=== PATIENT | male | born 1955 | race Caucasian/White ===

== ENCOUNTER 2017-11-15 09:34 | Day surgery (SDC) | payer BC, OTHER ==
[~2017-11-15 09:34] MED LIST: LIDOCAINE 2% INJ 100 MG/5 ML SDV (FOR ANES.) As Ordered; PROPOFOL 200 MG/20 ML VIAL As Ordered
[2017-11-15] MEDS ORDERED: LIDOCAINE 2% INJ 100 MG/5 ML SDV (FOR ANES.) As Ordered (09:41)
[2017-11-15] MEDS: NS 1,000 ML IV (09:45)
[2017-11-15] MEDS ORDERED: PROPOFOL 200 MG/20 ML VIAL As Ordered (10:27)
== END 2017-11-15 13:00 | disposition home or self-care (01) ==
LOC: M OPP 09:34
DX: Z12.11 Encounter for screening for malignant neoplasm of colon (principal); D12.5 Benign neoplasm of sigmoid colon; D12.3 Benign neoplasm of transverse colon; K64.0 First degree hemorrhoids; K57.30 Diverticulosis of large intestine without perforation or abscess without bleeding; I10 Essential (primary) hypertension; E78.5 Hyperlipidemia, unspecified; R12 Heartburn; K21.9 Gastro-esophageal reflux disease without esophagitis; Z87.891 Personal history of nicotine dependence; Z79.899 Other long term (current) drug therapy
CPT/HCPCS: 45385

== ENCOUNTER → 2019-09-23 | Outpatient (CLI) | payer BC, OTHER ==
[~2019-09-23] MED LIST changes: -LIDOCAINE 2% INJ 100 MG/5 ML SDV (FOR ANES.) As Ordered; +LISI20TA20 PO; +OMEP20CA4 PO; +PRAV10TA3 PO; -PROPOFOL 200 MG/20 ML VIAL As Ordered
--- NOTE | 2019-09-23 11:25 | REP ---
MRI LEFT ELBOW WITHOUT CONTRAST: HISTORY: Medial epicondylitis. Evaluate for golfer's elbow. No comparison radiographs. TECHNIQUE: Axial, coronal and sagittal imaging planes utilized. T1- and T2-weighted scans were included with without fat saturation. MRI FINDINGS: Cortical and medullary bone signal intensity are normal. There is no evidence of elbow joint effusion or loose body. The biceps, brachialis, and triceps tendons are unremarkable. There is no evidence of medial or lateral collateral ligament disruption. There is some T2 signal intensity adjacent to the lateral epicondyle which may reflect mild lateral epicondylitis. No abnormal signal intensity is seen at the medial epicondyle however. Ulnar nerve is unremarkable. There are small bone islands in the proximal ulna in the coronoid process and in the proximal radial head. There is evidence of mild chondromalacia over the capitellar surface of the distal humerus. There are tiny areas of subcortical marrow edema associated with this in the capitellum. The ulnar trochlear articulation is unremarkable. Study is otherwise negative. IMPRESSION: There are changes consistent with lateral epicondylitis, not medial. There are chondromalacia changes in the radiocapitellar articulation. Electronically Signed by Sergio Lindsay MD 09/23/2019 12:37 P
== END ==
LOC: M RAD 08:24
PROVIDERS: ATTEND Orthopaedic Surgery Sports Medicine
DX: M77.02 Medial epicondylitis, left elbow (principal)

== ENCOUNTER → 2020-08-26 | Outpatient (CLI) | payer BC, OTHER ==
[~2020-08-26] MED LIST changes: +OMEP1CAP73 PO; -OMEP20CA4 PO
--- NOTE | 2020-08-30 12:19 | SLEEPCENT ---
DATE: 08/26/2020 ORDERED BY: Vern Cordero MD Nocturnal polysomnography was performed for evaluation of sleep physiology in this patient with a history of excessive somnolence and non-restorative sleep. Six hours and 55 minutes of data were reviewed. There were 257.5 minutes of sleep identified. Sleep latency was mildly prolonged at 17 minutes. REM latency was normal at 89 minutes. Sleep architecture initially showed poor progression, following interventions improvement was seen. The overall sleep efficiency was 63.6%. The electrocardiogram showed a sinus rhythm with an average heart rate of 60 beats per minute. EEG showed reasonably normal waveforms for awake and sleep. There were 120 respiratory events identified of ten seconds in duration or greater for an apnea hypopnea index of 28. Having clearly established the presence of obstructive sleep apnea syndrome early in testing the study was stopped shortly before midnight for the application of pressure therapy. The patient was fit with a [employer]Med Quattro full face mask of large size, 4 cm of water pressure were applied to the circuit, and the lights were extinguished. Throughout the remaining hours of testing, pressure titration was performed to a pressure of 12 cm. However, late in the study despite CPAP of 12 the patient displayed obstructive events. These were not associated with the significant desaturations seen earlier in the test but in sufficient time was available for further pressure titration. IMPRESSIONS: 1. Obstructive sleep apnea syndrome (G47.33). Apnea hypopnea index 28. RECOMMENDATION: Initiation of pressure therapy at 12 cm of water would seem reasonable based on the results of this study. However, this pressure was insufficient to fully palliate the patients disease and referral [facility] to [facility] for full night titration is recommended. [facility]
== END ==
LOC: M SLEEP 20:00
PROVIDERS: ATTEND Internal Medicine Pulmonary Disease
DX: G47.30 Sleep apnea, unspecified (principal)

== ENCOUNTER → 2021-03-10 | Outpatient (CLI) | payer SELFPAY | LOC: M LABSMTC 12:52 | PROVIDERS: ATTEND Pediatrics | DX: Z11.52 Encounter for screening for COVID-19 (principal) ==

== ENCOUNTER 2022-06-08 07:35 | Day surgery (SDC) | payer BC, OTHER ==
[~2022-06-08] VITALS: Ht 167.6 cm; Wt 85.7 kg
[~2022-06-08 07:35] MED LIST changes: +ATOR1TAB21 PO; -LISI20TA20 PO; +LISI20TA37 PO; +METF-839 PO; +NS 1,000 ML IV ONE
[2022-06-08] MEDS ORDERED: propofoL 200 MG/20 ML VIAL As Ordered ONE (08:31)
[2022-06-08] MEDS ORDERED: LIDOCAINE 2% 100MG/5ML SDV (FOR ANES.) As Ordered ONE (08:35)
[2022-06-08] MEDS ORDERED: LABETALOL 100MG/20ML VIAL As Ordered ONE (08:35)
[2022-06-08 08:50] VITALS: BP 139/8
== END 2022-06-08 09:08 | disposition home or self-care (01) ==
LOC: M OPP 07:35
PROVIDERS: ATTEND Surgery
DX: Z12.11 Encounter for screening for malignant neoplasm of colon (principal); Z86.010 Personal history of colon polyps; K57.30 Diverticulosis of large intestine without perforation or abscess without bleeding; K64.1 Second degree hemorrhoids; I10 Essential (primary) hypertension; E11.9 Type 2 diabetes mellitus without complications; G47.30 Sleep apnea, unspecified; Z79.02 Long term (current) use of antithrombotics/antiplatelets; Z79.84 Long term (current) use of oral hypoglycemic drugs; Z79.899 Other long term (current) drug therapy; Z99.89 Dependence on other enabling machines and devices

== ENCOUNTER → 2023-05-15 | Outpatient (CLI) | payer MEDICARE, BC, OTHER ==
[~2023-05-15] MED LIST changes: -NS 1,000 ML IV ONE
== END ==
LOC: M SLEEP 20:00
PROVIDERS: ATTEND Nurse Practitioner Family
DX: G47.33 Obstructive sleep apnea (adult) (pediatric) (principal)

== ENCOUNTER → 2025-03-14 | Outpatient (REF) | payer MEDICARE, BC, OTHER ==
[2025-03-14 12:45] LABS: APPEARANCE, URINE CLEAR (CLEAR); BACTERIA, URINE AUTO NEGATIVE (NEGATIVE); BILIRUBIN, URINE AUTO NEGATIVE (NEGATIVE); BLOOD, URINE BLOOD NEGATIVE (NEGATIVE); COLOR, URINE YELLOW (YELLOW); GLUCOSE, URINE (UA) AUTO NEGATIVE (NEGATIVE); KETONE, URINE AUTO NEGATIVE (NEGATIVE); LEUKOCYTE ESTERASE, URINE AUTO NEGATIVE (NEGATIVE); NITRITE, URINE AUTO NEGATIVE (NEGATIVE); PROTEIN, URINE AUTO NEGATIVE (NEGATIVE); RBC, URINE AUTO 0 /HPF (0-3); SPECIFIC GRAVITY URINE AUTO 1.005 (1.002-1.035); SQUAMOUS EPITHELIAL CELL UR AU 0 /HPF (0-6); UROBILINOGEN, URINE AUTO 0.2 mg/dL (0.0-2.0); WBC, URINE AUTO 0 /HPF (0-3)
[2025-03-14 12:53] LABS: HEMATOCRIT 41.1 % (42.0-52.0); HEMOGLOBIN 13.9 g/dl (13.5-17.5); MEAN CORPUSCULAR HGB CONC 33.8 g/dl (32.0-36.5); MEAN CORPUSCULAR VOLUME 91.5 fl (80.0-96.0); PLATELET COUNT, AUTOMATED 203 10^3/uL (150-450); RED BLOOD COUNT 4.49 10^6/uL (4.30-6.10); WHITE BLOOD COUNT 7.3 10^3/uL (4.0-10.0)
[2025-03-14 13:14] LABS: PSA SCREENING 1.31 NG/ML (< 4.00)
[2025-03-14 13:15] LABS: HEMOGLOBIN A1c 5.9 % (4.0-6.0)
[2025-03-14 13:16] LABS: ALBUMIN 3.9 G/DL (3.2-5.2); ALKALINE PHOSPHATASE 56 U/L (40-129); ALT/SGPT 35 U/L (7.0-40); AST/SGOT 15 U/L (<34); BILIRUBIN,TOTAL 0.5 MG/DL (0.3-1.2); BLOOD UREA NITROGEN 17 MG/DL (9-23); CALCIUM LEVEL 9.6 MG/DL (8.3-10.6); CARBON DIOXIDE LEVEL 29 MMOL/L (20-31); CHLORIDE LEVEL 105 MMOL/L (98-107); CHOLESTEROL LEVEL 148 MG/DL (<200); CHOLESTEROL RISK RATIO 3.72 (<5); CREATININE FOR GFR 0.83 MG/DL (0.70-1.30); GLOMERULAR FILTRATION RATE > 90.0 (>49); GLUCOSE, FASTING 106 MG/DL (74-106); HDL CHOLESTEROL 39.7 MG/DL (>40); LDL CHOLESTEROL 79.1 MG/DL (<100); NON-HDL-C 108.3 MG/DL; POTASSIUM SERUM 4.4 MMOL/L (3.5-5.1); SODIUM LEVEL 140 MMOL/L (136-145); TOTAL PROTEIN 6.9 G/DL (5.7-8.2); TRIGLYCERIDES LEVEL 146 MG/DL (<150)
[2025-03-14 13:18] LABS: THYROID STIMULATING HORMONE 1.235 uIU/ML (0.55-4.78)
== END ==
LOC: M LABDRAWC 12:15
PROVIDERS: ATTEND Physician Assistant
DX: I10 Essential (primary) hypertension (principal); E11.9 Type 2 diabetes mellitus without complications; E78.5 Hyperlipidemia, unspecified; Z12.5 Encounter for screening for malignant neoplasm of prostate; R35.1 Nocturia
CPT/HCPCS: 36415; 80053; 80061; 81001; 83036; 84443; 85027; G0103

== ENCOUNTER → 2025-07-17 | Outpatient (CLI) | payer MEDICARE, BC ==
[~2025-07-17] MED LIST changes: -PRAV10TA3 PO; +PRAV10TA43 PO
[2025-07-17 14:19] LABS: ESTIMATED AVERAGE GLUCOSE 131.0 MG/DL (60-110)
== END ==
LOC: M WUC 08:12
PROVIDERS: ATTEND Physician Assistant
DX: E11.9 Type 2 diabetes mellitus without complications (principal)